=== PATIENT | male | born 1970 | race Caucasian/White ===

== ENCOUNTER 2018-11-29 02:08 | Outpatient (CLI) | payer BC, SELFPAY ==
[2018-11-29 11:35] LABS: ALT 23 U/L (12-78); AST 18 U/L (15-37); Albumin 3.8 g/dL (3.4-5.0); Alkaline Phosphatase 131 U/L (46-116); Anion Gap 5.2 mmol/L (3-11); BUN 19 mg/dL (7-18); Bilirubin, Total 0.8 mg/dL (0.2-1.0); CO2 30.8 mmol/L (21.0-32.0); CREATININE 0.97 mg/dL (0.70-1.30); Calcium 9.2 mg/dL (8.5-10.1); Chloride 101 mmol/L (98-107); Cholesterol 125 mg/dL (50-200); Glucose 95 mg/dL (70-100); HDL Cholesterol 45 mg/dL (40-60); LDL CHOLESTEROL 72 mg/dL (<100); Potassium 4.1 mmol/L (3.5-5.1); Sodium 137 mmol/L (136-145); Total Protein 6.7 g/dL (6.4-8.2); Triglyceride 70 mg/dL (30-150)
[2018-11-29 18:10] LABS: FREE T4 0.92 ng/dL (0.76-1.46)
[2018-12-01 17:25] LABS: Testosterone, Free 7.61 ng/dL (4.06-15.6); Testosterone, Total 282 ng/dL (240-950)
== END 2018-11-29 02:28 ==
PROVIDERS: PCP Nurse Practitioner Family; Visit Provider Nurse Practitioner Family
DX: Z00.00 Encounter for general adult medical examination without abnormal findings (principal); E78.5 Hyperlipidemia, unspecified; Z12.5 Encounter for screening for malignant neoplasm of prostate; R53.83 Other fatigue
CPT/HCPCS: 36415; 80053; 80061; 83721; 84402; 84403; 84154; 84439; 84443

== ENCOUNTER 2018-12-24 08:09 | Day surgery (SDC) | payer BC, SELFPAY ==
--- NOTE | 2018-12-24 07:06 | W.COLOREPORT ---
Date of service: 12/24/18 Time of Service: 09:11 Colonoscopy Report Date of procedure: 12/24/18 Pre-op diagnosis general: Colon Cancer Screening Post-op diagnosis procedure note: other (Rectal polyp) Procedure: Colonoscopy with polypectomy with cold forceps Surgeon: Racheal Mckeon Anesthesia proc note operative: other (General/ ASA 2/ Lance Cordova, UZMA) Estimated blood loss (mL): 3 Pathology: other (rectal polyp) Complications: None Disposition: no change Indications: Mr. Duarte is a pleasant 48 year old male who was seen in the office for a screening colonoscopy. Risks, benefits and complications have been reviewed. Complications include but are not limited to bleeding, pain, perforation, missed small lesion/polyp, sore throat, aspiration and adverse reaction to the medications. Questions were entertained and answered to their satisfaction and they wished to proceed. No guarantees were given or implied. Prep: Miralax/Dulcolax Procedure Start Time: 09:11 Procedure End Time: 09:37 Retraction Time: 15 minutes Findings: One small <1 cm sessile polyp Procedure Description: After informed consent was obtained the patient was taken to the procedure room and placed in a left decubitous position. Monitors were applied and a time out was done. The patients name, date of , procedure, allergies to medications and metal in their body was reviewed. The patient was then sedated. Once sedated and comfortable a rectal exam was done. External exam was normal. Internal exam revealed a normal sphincter tone and no palpable masses. The prostate felt smooth. The scope was then introduced and retro-flexed. No internal hemorrhoids, masses or polyps were identified. The scope was then advanced to the cecum without difficulty. The TI and appendiceal orifice were identified. The prep was adequate. The scope was then slowly retracted over 15 minutes back into the rectum. One Polyp was removed in the rectum. The scope was removed and the patient was woken up and taken back to Same day surgery in stable condition. The patient tolerated the procedure well and there were no immediate complications. Follow up: The patient should follow up in 3-5 years unless they develop changes in bowel habits or other new gastrointestinal complaints.
--- NOTE | 2018-12-24 07:07 | W.PM.DSUDISC ---
Discharge Plan Disposition Patient Disposition: HOME Condition: Good Discharge Details Reason For Visit: Colon Cancer Screening Attending Provider: Racheal Mckeon Primary Care Provider: Annie Senior Home Meds and New Rx's Prescriptions: Discontinued bisacodyl [Dulcolax (bisacodyl)] 5 mg tablet,delayed release (DR/EC) 5 mg PO ONCE Qty: 4 RF: 0 polyethylene glycol 3350 17 gram/dose powder 238 g PO ONCE Qty: 238 RF: 0 Discharge Instructions Instructions: Colonoscopy (DC), Colorectal Polyps (DC) Additional Instructions: Findings: 1 small polyp Follow up: 3-5 years Please call if you develop: fevers >101.5 Nausea or Vomiting Abdominal pain that is not transient DAY SURGERY UNIT POST COLONOSCOPY INSTRUCTIONS 1. Because there will be medication in your system for the next 24 hours, you may feel a little sleepy. Your coordination will be affected. Therefore: a. Do not drive or operate dangerous equipment for 24 hours. b. Do not drink alcohol beverages for 24 hours (not even beer). c. Plan to go home and rest for the day. 2. Generally there are no restrictions on your activity after a day or so has gone by, but you may feel a bit fatigued for a few days. 3 After you arrive home you may have a light meal and return to a normal diet as you can tolerate it without feeling sick to your stomach. 4. After surgery, you may feel pain or discomfort. This should be only transient, but if it persists please contact your doctor. 5. If there are any questions regarding the findings of your procedure, please feel free to contact your doctor. 6. If you are unable to contact your doctor with a problem, contact the hospital at [phone]. 7. Continue all your regular medications unless directed otherwise. I understand the above instructions and have no questions. Signature of Patient or Responsible Adult Escort Date/Time Name of Responsible Adult Escort Signature of Nurse Date/Time Stand Alone Forms: Erum Jimenez (DSU) Activity:: Activity as Tolerated Diet:: As Tolerated Discharge Orders Discharge Orders: Discharge Order (Routine); Ordered 12/24/18 Ordered By: Racheal Mckeon DS: Diagnosis Discharge Diagnosis (1) S/P colonoscopy: Status: Acute (2) Colorectal polyp detected on colonoscopy: Status: Acute
--- NOTE | 2018-12-24 07:13 | W.PM.HP.N ---
Date of service: 12/24/18 Assessment and Plan (1) Encounter for screening colonoscopy: Current visit: No Status: Acute P\\ Colonoscopy under sedation Risks, benefits and complications have been reviewed. Complications include but are not limited to bleeding, pain, perforation, missed small lesion/polyp, sore throat, aspiration and adverse reaction to the medications. Questions were entertained and answered to their satisfaction and they wished to proceed. No guarantees were given or implied. History of Present Illness Narrative: 48 y/o male with history of hyperlipidema presents for his first colonoscopy screening pre-op. He denies a family history of colon cancer. He denies any changes in bowel habits including bloody or black tarry stools, abdominal pain, diarrhea or constipation. He denies constitutional symptoms. Denies use of marijuana or any other recreational or illegal drugs. He denies chest pain, palpitations, dyspnea or dyspnea with exertion. He exercises daily and works at the [employer]. He denies prior history or family history of adverse reactions or complications with anesthesia. There were no changes in his health since he was seen in the office. Review of Systems Constitutional Denies fever(s) Cardiovascular Denies chest pain, Denies palpitations and Denies dyspnea Respiratory Denies dyspnea Endocrine Denies palpitations [facility] Medical History Hyperlipidemia (Chronic) Inguinal hernia of left side without obstruction or gangrene (Resolved) Surgical History S/P colonoscopy (Acute ~12/24/18) S/P hernia repair (Inactive) Family History Mother No problems noted. Father Prostate cancer Sister Multiple sclerosis Brother No problems noted. Brother Suicide Brother No problems noted. Daughter No problems noted. Maternal Grandfather Lung cancer Maternal Grandmother No problems noted. Paternal Grandfather Diabetes Paternal Grandmother No problems noted. Social History Smoking/Tobacco Use Status: Former Tobacco Use Quit Date: 09/03/08 Alcohol Intake: current Alcohol Intake frequency: holidays/special occasions only Drug use: Never Substance use type: does not use Caregiver/Support person: No Household members: spouse and children Housing: house Pets and animals: Yes Do you think of yourself as: straight/heterosexual Duration: 60-90 minutes/day Frequency: daily Briseyda/Zoroastrian: Baptism Special briseyda needs: No Do you feel safe at home: Yes Do you feel safe in your relationship?: Yes Meds Home Medications Medication Instructions Recorded Confirmed Type bisacodyl 5 mg tablet,delayed 5 mg PO ONCE #4 tab 11/08/18 11/29/18 Rx release polyethylene glycol 3350 17 238 g PO ONCE #238 gm 11/08/18 11/29/18 Rx gram/dose oral powder Allergies Allergy/AdvReac Type Severity Reaction Status Date / Time No Known Allergies Allergy Verified 11/29/18 08:50 Exam HENVT Head: normocephalic and atraumatic Resp Effort & Inspection: normal respiratory effort Auscultation: clear to auscultation bilaterally Cardio Rate: regular rate Rhythm: regular rhythm Heart Sounds: no gallops, no murmurs and no rubs
[2018-12-24 08:19] VITALS: BP 120/84; PULSE 80; RESP 16; TEMP 35.6; O2SAT 96
[2018-12-24] MEDS: Lactated Ringers 1,000 ML 80 ML IV (08:35)
--- NOTE | 2018-12-24 09:36 | BOWEL_PTH ---
PATIENT: Alberto Duarte LOC: [facility] U#:[id number] AGE/SX: 48/M ROOM: RE12/24/[address]: Racheal Mckeon MD : [id number] BED: DIS: 12/24/2018 SPEC #: [id number] RECD: 12/24/18 12:16 STATUS: EDER RE #: [id number] MICHELLE: 12/24/18 09:[address]: Racheal Mckeon DEPT: Surgical Specimen RECD BY: Katty Balderas ENTERED: 12/24/18 12:17 SP TYPE: Bowel OTHR DR: CHRISTOPHER Silva Tissues: 1 - BIOPSY BOWEL Procedures: GROSS AND MICRO LEVEL 4 Comments: [id number]
[2018-12-24 10:20] VITALS: BP 122/86; PULSE 63; RESP 16; TEMP 35.7; O2SAT 96
== END 2018-12-24 10:33 | disposition home or self-care (01) ==
PROVIDERS: PCP Nurse Practitioner Family; Visit Provider Surgery
PROC: 0DJD8ZZ Inspection of Lower Intestinal Tract, Via Natural or Artificial Opening Endoscopic (ICD-10-PCS; CPT 45378; principal; 2018-12-24 08:30)
DX: Z12.11 Encounter for screening for malignant neoplasm of colon (principal); K62.1 Rectal polyp
CPT/HCPCS: 45380; 88305; NC

== ENCOUNTER → 2023-06-06 02:59 | Outpatient (CLI) | payer BC, SELFPAY ==
--- NOTE | 2023-06-06 06:45 | DI.RAD_ITS ---
Exam(s) XR KNEE LT 3V AP,LAT,YULI EXAM: XR KNEE LT 3V AP,LAT,YULI CLINICAL HISTORY: left knee pain, bony prominence medial aspect,m25.562. TECHNIQUE: 2D digital imaging was performed. COMPARISON: No exams were available for comparison FINDINGS: 3 views No evidence of fracture nor prominent joint effusion. There is significant narrowing of the medial c ompartment. Lateral compartment exhibits normal height. Minimal degenerative changes in the patello femoral compartment. Bone density normal. No osseous lesions. 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 DATA REPOSITORY: RADIATION DOSE DELIVERED:
== END ==
PROVIDERS: PCP Nurse Practitioner Family; Visit Provider Nurse Practitioner Family
DX: M17.12 Unilateral primary osteoarthritis, left knee (principal)
CPT/HCPCS: 73562

== ENCOUNTER 2023-08-16 09:03 | Outpatient (CLI) | payer BC, SELFPAY ==
[2023-08-16 12:51] LABS: HCT 44.4 % (40.0-50.0); HGB 14.7 g/dL (13.5-17.5); MCH 29.3 pg (27.0-33.0); MCHC 33.1 % (32.0-36.0); MCV 89 fL (80-95); MPV 10.6 fL (8.0-11.0); Platelet Count 241 10^3/uL (130-400); RBC 5.01 10^6/uL (4.36-5.78); RDW 12.8 % (11.8-14.1); RDW-SD 41.4 fL; WBC 3.25 10^3/uL (4.4-10.8)
[2023-08-16 13:01] LABS: ALT 29 U/L (16-63); AST 18 U/L (15-37); Albumin 3.7 g/dL (3.4-5.0); Alkaline Phosphatase 306 U/L (46-116); Anion Gap 7.8 mmol/L (3-11); BUN 23 mg/dL (7-18); Bilirubin, Total 0.6 mg/dL (0.2-1.0); CO2 28.2 mmol/L (21.0-32.0); CREATININE 0.7 mg/dL (0.70-1.30); Calcium 9.4 mg/dL (8.5-10.1); Calculated LDL 42 mg/dL (<100); Chloride 103 mmol/L (98-107); Cholesterol 116 mg/dL (<200); Estimated GFR 108.82 (mL/min/1.73m2); Glucose 118 mg/dL (74-106); HDL Cholesterol 61 mg/dL (40-60); Potassium 4.2 mmol/L (3.5-5.1); Sodium 139 mmol/L (136-145); Total Protein 6.9 g/dL (6.4-8.2); Triglyceride 65 mg/dL (<150)
[2023-08-16 13:27] LABS: Hemoglobin A1C 5.6 % (<5.7)
[2023-08-16 21:31] LABS: Hepatitis C Ab w Rflx HCV PCR Negative (Negative)
== END 2023-08-16 09:04 | disposition home or self-care (01) ==
LOC: LOS 09:03
PROVIDERS: PCP Nurse Practitioner Family; Visit Provider Nurse Practitioner Family
DX: Z00.00 Encounter for general adult medical examination without abnormal findings (principal); Z12.5 Encounter for screening for malignant neoplasm of prostate
CPT/HCPCS: 36415; 80053; 80061; 84153; 85027; 86803; 83036

== ENCOUNTER 2023-08-31 03:37 | Outpatient (CLI) | payer BC, SELFPAY ==
[2023-08-31 12:21] LABS: Abs Immature Grans 0.01 10^3/uL (0.0-0.06); Absolute Basophil Count 0.02 10^3/uL (0.0-0.2); Absolute Eosinophil Count 0.09 10^3/uL (0.0-0.7); Absolute Lymphocyte Count 1.19 10^3/uL (1.2-3.4); Absolute Monocyte Count 0.63 10^3/uL (0.1-0.8); Basophils % 0.5; Eosinophils % 2.5; HCT 41.6 % (40.0-50.0); HGB 13.8 g/dL (13.5-17.5); Immature Grans % 0.3; Lymphocytes % 32.7; MCH 29.4 pg (27.0-33.0); MCHC 33.2 % (32.0-36.0); MCV 89 fL (80-95); MPV 10.5 fL (8.0-11.0); Monocytes % 17.3; Neutrophils % 46.7; Platelet Count 215 10^3/uL (130-400); RDW 12.3 % (11.8-14.1); RDW-SD 39.5 fL; WBC 3.64 10^3/uL (4.4-10.8)
[2023-08-31 12:34] LABS: ALT 30 U/L (16-63); AST 17 U/L (15-37); Albumin 3.4 g/dL (3.4-5.0); Alkaline Phosphatase 276 U/L (46-116); Anion Gap 8.3 mmol/L (3-11); BUN 16 mg/dL (7-18); Bilirubin, Total 0.5 mg/dL (0.2-1.0); CO2 28.7 mmol/L (21.0-32.0); CREATININE 0.9 mg/dL (0.70-1.30); Calcium 9.2 mg/dL (8.5-10.1); Chloride 105 mmol/L (98-107); Estimated GFR 100.86 (mL/min/1.73m2); GGT 13 U/L (15-85); Glucose 104 mg/dL (74-106); Potassium 3.9 mmol/L (3.5-5.1); Sodium 142 mmol/L (136-145); Total Protein 6.5 g/dL (6.4-8.2)
[2023-08-31 12:35] LABS: TSH (W/Ref FT4) < 0.01 uIU/mL (0.36-3.74)
[2023-08-31 12:47] LABS: Vitamin D 25 Total 71.1 ng/mL (30-100)
[2023-08-31 20:33] LABS: Parathyroid Hormone,Intact 25 pg/mL (19-88)
== END 2023-08-31 03:38 | disposition home or self-care (01) ==
PROVIDERS: PCP Nurse Practitioner Family; Visit Provider Nurse Practitioner Family
DX: R74.8 Abnormal levels of other serum enzymes (principal); D72.819 Decreased white blood cell count, unspecified
CPT/HCPCS: 36415; 80053; 82306; 82977; 83970; 84439; 84443; 85025

== ENCOUNTER 2023-09-10 05:21 | Outpatient (CLI) | payer BC, SELFPAY ==
[2023-09-10 13:18] LABS: TSH (W/Ref FT4) < 0.01 uIU/mL (0.36-3.74)
[2023-09-10 13:40] LABS: FREE T4 2.75 ng/dL (0.76-1.46)
[2023-09-10 23:59] LABS: T3,Free >22.8 pg/mL (2.8-5.3)
[2023-09-13 12:04] LABS: Thyrotropin Receptor Ab 3.27 IU/L
== END 2023-09-10 05:22 | disposition home or self-care (01) ==
LOC: LOS 05:21
PROVIDERS: PCP Nurse Practitioner Family; Visit Provider Nurse Practitioner Family
DX: E05.90 Thyrotoxicosis, unspecified without thyrotoxic crisis or storm (principal)
CPT/HCPCS: 36415; 84235; 84439; 84443; 84481

== ENCOUNTER → 2023-10-11 01:47 | Outpatient (CLI) | payer BC, SELFPAY ==
--- NOTE | 2023-10-11 05:45 | DI.NM_ITS ---
Exam(s) NM I123 THYROID UP SC DAY 1 NM I123 THYROID UP SC DAY 2 CLINICAL HISTORY: HYPERTHYROIDISM,e05.90. COMPARISON: NM NM I123 THYROID UP SC DAY 1 from 10/10/2023 TECHNIQUE: Capsule Dose: 0.35 millicuries I-123 Rene Images: At 6 hours and 24 hours. FINDINGS: The 4 hour radioiodine uptake was 49 percent. The total radioiodine uptake was 76 % at 24 hours. Th is is above the normal range. No cold or hot nodules are demonstrated. IMPRESSION: Radioiodine uptake is above the normal range is could indicate Graves disease. SNM Guidelines: Normal uptake values 10-35%. Graves Uptake >50-80%. DATA REPOSITORY:
== END ==
PROVIDERS: PCP Nurse Practitioner Family; Visit Provider Nurse Practitioner Family
DX: E05.90 Thyrotoxicosis, unspecified without thyrotoxic crisis or storm (principal)
CPT/HCPCS: 78014; A9512

== ENCOUNTER 2023-11-20 09:52 | Outpatient (CLI) | payer BC, SELFPAY ==
[2023-11-20 09:47] LABS: Abs Immature Grans 0.01 10^3/uL (0.0-0.06); Absolute Basophil Count 0.01 10^3/uL (0.0-0.2); Absolute Eosinophil Count 0.02 10^3/uL (0.0-0.7); Absolute Lymphocyte Count 0.68 10^3/uL (1.2-3.4); Absolute Monocyte Count 0.83 10^3/uL (0.1-0.8); Absolute Neutrophil Count 2.88 10^3/uL (1.2-6.7); Basophils % 0.2; Eosinophils % 0.5; HCT 42.6 % (40.0-50.0); HGB 14.2 g/dL (13.5-17.5); Immature Grans % 0.2; Lymphocytes % 15.3; MCH 29.1 pg (27.0-33.0); MCHC 33.3 % (32.0-36.0); MCV 87 fL (80-95); Monocytes % 18.7; Neutrophils % 65.1; Platelet Count 171 10^3/uL (130-400); RBC 4.88 10^6/uL (4.36-5.78); RDW 12.8 % (11.8-14.1); RDW-SD 41.1 fL; WBC 4.43 10^3/uL (4.4-10.8)
[2023-11-20 10:11] LABS: FREE T4 2.74 ng/dL (0.76-1.46)
[2023-11-20 10:13] LABS: ALT 44 U/L (16-63); AST 25 U/L (15-37); Albumin 3.4 g/dL (3.4-5.0); Alkaline Phosphatase 326 U/L (46-116); Anion Gap 10.7 mmol/L (3-11); BUN 17 mg/dL (7-18); Bilirubin, Total 0.5 mg/dL (0.2-1.0); CO2 28.3 mmol/L (21.0-32.0); CREATININE 0.9 mg/dL (0.70-1.30); Calcium 8.8 mg/dL (8.5-10.1); Chloride 103 mmol/L (98-107); Estimated GFR 100.86 (mL/min/1.73m2); Glucose 131 mg/dL (74-106); Potassium 4.2 mmol/L (3.5-5.1); Sodium 142 mmol/L (136-145); Total Protein 6.6 g/dL (6.4-8.2)
[2023-11-20 17:40] LABS: T3, Total 692 ng/dL (97-169)
[2023-11-20 21:31] LABS: Lab Add On Test DONE
[2023-11-20 21:53] LABS: TSH < 0.01 uIU/Ml (0.36-3.74)
== END 2023-11-20 09:53 | disposition home or self-care (01) ==
LOC: LBO 09:52
PROVIDERS: PCP Nurse Practitioner Family; Visit Provider Student in an Organized Health Care Education/Training Program
DX: E05.90 Thyrotoxicosis, unspecified without thyrotoxic crisis or storm (principal)
CPT/HCPCS: 36415; 80053; 84439; 84443; 84480; 85025

== ENCOUNTER 2024-02-08 05:21 | Outpatient (CLI) | payer BC, SELFPAY ==
[2024-02-08 12:58] LABS: FREE T4 0.73 ng/dL (0.76-1.46)
[2024-02-08 18:22] LABS: T3, Total 222 ng/dL (97-169)
== END 2024-02-08 05:22 | disposition home or self-care (01) ==
LOC: LOS 05:21
PROVIDERS: PCP Nurse Practitioner Family; Visit Provider Student in an Organized Health Care Education/Training Program
DX: E05.00 Thyrotoxicosis with diffuse goiter without thyrotoxic crisis or storm (principal)
CPT/HCPCS: 36415; 84439; 84480

== ENCOUNTER 2024-03-28 01:52 | Outpatient (CLI) | payer BC, SELFPAY ==
[2024-03-28 16:51] LABS: HCT 41.3 % (40.0-50.0); HGB 14.3 g/dL (13.5-17.5); MCH 32.5 pg (27.0-33.0); MCHC 34.6 % (32.0-36.0); MCV 94 fL (80-95); MPV 10.5 fL (8.0-11.0); Platelet Count 208 10^3/uL (130-400); RDW 12.4 % (11.8-14.1); WBC 4.42 10^3/uL (4.4-10.8)
[2024-03-28 17:37] LABS: ALT 28 U/L (16-63); AST 21 U/L (15-37); Albumin 3.9 g/dL (3.4-5.0); Alkaline Phosphatase 366 U/L (46-116); Anion Gap 7.4 mmol/L (3-11); BUN 23 mg/dL (7-18); Bilirubin, Total 0.47 mg/dL (0.2-1.0); CO2 28.6 mmol/L (21.0-32.0); CREATININE 0.9 mg/dL (0.70-1.30); Calcium 8.9 mg/dL (8.5-10.1); Calculated LDL 72 mg/dL (<100); Chloride 103 mmol/L (98-107); Cholesterol 163 mg/dL (<200); Estimated GFR 100.86 (mL/min/1.73m2); Glucose 100 mg/dL (74-106); HDL Cholesterol 66 mg/dL (40-60); Potassium 3.8 mmol/L (3.5-5.1); Sodium 139 mmol/L (136-145); Total Protein 6.9 g/dL (6.4-8.2); Triglyceride 127 mg/dL (<150); Vitamin D 25 Total 44.3 ng/mL (30-100)
[2024-03-28 17:57] LABS: FREE T4 0.85 ng/dL (0.76-1.46)
[2024-03-29 22:21] LABS: CRP, High Sensitivity <0.34 mg/L (See Note)
[2024-03-29 22:37] LABS: T3,Free 3.5 pg/mL (2.8-5.3)
[2024-03-29 22:51] LABS: T3, Total 195 ng/dL (97-169)
[2024-03-31 09:33] LABS: IgA 255 mg/dL (85-499); IgG 837 mg/dL (610-1616); IgM 78 mg/dL (35-242)
[2024-03-31 09:55] LABS: Thyroperoxidase Antibody >1300 U/mL (<=60)
[2024-04-01 11:13] LABS: Selenium, Serum 150 mcg/L (110-165)
[2024-04-01 12:26] LABS: Lipoprotein (a) <7 nmol/L (<75)
[2024-04-01 16:18] LABS: Alkaline Phosphatase 347 U/L (40 - 129); Bone % 75.8 % (19.1-67.7); Intestine 52.7 IU/L (0.0-11.0); Intestine % 15.2 % (0.0-20.6)
[2024-04-01 19:34] LABS: Iodine, S 50 ng/mL (40-92)
[2024-04-02 22:06] LABS: Thyroid Stimulating Immunoglob <1.0 TSI index (<=1.3)
== END 2024-03-28 01:53 | disposition home or self-care (01) ==
LOC: LBO 01:53
PROVIDERS: Student in an Organized Health Care Education/Training Program; PCP Nurse Practitioner Family; Visit Provider Naturopath
DX: E05.00 Thyrotoxicosis with diffuse goiter without thyrotoxic crisis or storm (principal); E05.90 Thyrotoxicosis, unspecified without thyrotoxic crisis or storm; E55.9 Vitamin D deficiency, unspecified; Z13.220 Encounter for screening for lipoid disorders; R74.8 Abnormal levels of other serum enzymes; D72.819 Decreased white blood cell count, unspecified
CPT/HCPCS: 36415; 80053; 80061; 82306; 82784; 83090; 83695; 84075; 84080; 85027; 86141; 82190; 84255; 84439; 84443; 84445; 84480; 84481; 86376

== ENCOUNTER 2024-07-15 13:56 | Outpatient (CLI) | payer BC, SELFPAY ==
[2024-07-15 13:53] LABS: Abs Immature Grans 0.01 10^3/uL (0.0-0.06); Absolute Basophil Count 0.04 10^3/uL (0.0-0.2); Absolute Eosinophil Count 0.12 10^3/uL (0.0-0.7); Absolute Lymphocyte Count 1.14 10^3/uL (1.2-3.4); Absolute Monocyte Count 0.42 10^3/uL (0.1-0.8); Absolute Neutrophil Count 2.59 10^3/uL (1.2-6.7); Basophils % 0.9 %; Eosinophils % 2.8 %; HCT 41.6 % (40.0-50.0); HGB 14.7 g/dL (13.5-17.5); Immature Grans % 0.2 %; Lymphocytes % 26.4 %; MCHC 35.3 % (32.0-36.0); MCV 93 fL (80-95); MPV 9.8 fL (8.0-11.0); Monocytes % 9.7 %; Platelet Count 210 10^3/uL (130-400); RBC 4.46 10^6/uL (4.36-5.78); RDW 11.9 % (11.8-14.1); RDW-SD 40.9 fL; WBC 4.32 10^3/uL (4.4-10.8)
[2024-07-15 15:22] LABS: ALT 26 U/L (16-63); AST 25 U/L (15-37); Albumin 4.1 g/dL (3.4-5.0); Alkaline Phosphatase 259 U/L (46-116); Anion Gap 8.5 mmol/L (3-11); BUN 20 mg/dL (7-18); Bilirubin, Total 0.38 mg/dL (0.2-1.0); CO2 26.5 mmol/L (21.0-32.0); CREATININE 0.9 mg/dL (0.70-1.30); Calcium 8.8 mg/dL (8.5-10.1); Chloride 106 mmol/L (98-107); Estimated GFR 100.24 (mL/min/1.73m2); Ferritin 428 ng/mL (26-388); Folate 17.3 ng/mL (8.6-20.0); Glucose 92 mg/dL (74-106); Magnesium 2.2 mg/dL (1.8-2.4); Potassium 3.9 mmol/L (3.5-5.1); Sodium 141 mmol/L (136-145); Total Protein 7.2 g/dL (6.4-8.2); Vitamin B12 373 pg/mL (193-986)
[2024-07-15 15:32] LABS: Iron 108 ug/dL (65-175); Total Iron Binding Capacity 240 ug/dL (250-450); Transferrin Sat 45 % (20-55)
[2024-07-15 17:26] LABS: FREE T4 0.82 ng/dL (0.76-1.46); TSH 0.92 uIU/mL (0.36-3.74)
== END 2024-07-15 13:57 | disposition home or self-care (01) ==
LOC: LBO 13:59
PROVIDERS: Student in an Organized Health Care Education/Training Program; PCP Nurse Practitioner Family; Visit Provider Naturopath
DX: E05.00 Thyrotoxicosis with diffuse goiter without thyrotoxic crisis or storm (principal); R25.2 Cramp and spasm
CPT/HCPCS: 36415; 80053; 82607; 82728; 82746; 83540; 83550; 83735; 84439; 84443; 85025

== ENCOUNTER 2024-10-17 13:42 | Outpatient (CLI) | payer BC, SELFPAY ==
[2024-10-17 13:01] LABS: FREE T4 0.99 ng/dL (0.76-1.46); TSH 0.55 uIU/mL (0.36-3.74)
[2024-10-17 13:20] LABS: ALT 30 U/L (16-63); AST 26 U/L (15-37); Albumin 4.5 g/dL (3.4-5.0); Alkaline Phosphatase 213 U/L (46-116); Anion Gap 8.5 mmol/L (3-11); BUN 20 mg/dL (7-18); Bilirubin, Total 0.79 mg/dL (0.2-1.0); CO2 29.5 mmol/L (21.0-32.0); CREATININE 1.1 mg/dL (0.70-1.30); Calcium 9.1 mg/dL (8.5-10.1); Chloride 104 mmol/L (98-107); Estimated GFR 78.79 (mL/min/1.73m2); Glucose 97 mg/dL (74-106); Iron 134 ug/dL (65-175); Sodium 142 mmol/L (136-145); Total Iron Binding Capacity 240 ug/dL (250-450); Total Protein 7.8 g/dL (6.4-8.2); Transferrin Sat 56 % (20-55)
[2024-10-17 13:28] LABS: Ferritin 495 ng/mL (26-388)
[2024-10-17 13:35] LABS: Vitamin D 25 Total 35.3 ng/mL (30-100)
[2024-10-17 22:03] LABS: T3,Free 4.8 pg/mL (2.8-5.3)
[2024-10-17 22:55] LABS: PSA, Screening 0.8 ng/mL (<=3.5)
[2024-10-18 00:06] LABS: HIV-1/2 Ag & Ab Screen Negative (Negative)
[2024-10-18 17:55] LABS: Mercury, B <1 ng/mL (<10)
[2024-10-20 10:17] LABS: HBs Antibody, Quant <3.1 mIU/mL (See Note); Hep B Surface Ab Negative (See Note); Hepatitis B Core Antibody Negative (Negative); Hepatitis B Surface Antigen Negative (Negative)
[2024-10-22 22:30] LABS: Thyroid Stimulating Immunoglob <1.0 TSI index (<=1.3)
[2024-10-23 03:49] LABS: Free Retinol (Vitamin A) 49.6 mcg/dL (32.5-78.0)
== END 2024-10-17 13:43 | disposition home or self-care (01) ==
LOC: LBO 13:43
PROVIDERS: Student in an Organized Health Care Education/Training Program; PCP Nurse Practitioner Family; Visit Provider Naturopath
DX: Z11.4 Encounter for screening for human immunodeficiency virus [HIV] (principal); Z00.00 Encounter for general adult medical examination without abnormal findings; Z12.5 Encounter for screening for malignant neoplasm of prostate; Z11.59 Encounter for screening for other viral diseases; E05.90 Thyrotoxicosis, unspecified without thyrotoxic crisis or storm; Z77.018 Contact with and (suspected) exposure to other hazardous metals; E55.9 Vitamin D deficiency, unspecified; E05.00 Thyrotoxicosis with diffuse goiter without thyrotoxic crisis or storm
CPT/HCPCS: 36415; 80053; 82306; 83825; 84153; 86704; 86706; 87340; 87389; 82728; 83540; 83550; 84439; 84443; 84445; 84481; 84590

== ENCOUNTER 2024-11-27 10:20 | Outpatient (CLI) | payer BC, SELFPAY ==
[2024-12-03 07:39] LABS: Specimen WB Whole Blood
== END 2024-11-27 10:21 | disposition home or self-care (01) ==
LOC: LBO 10:21
PROVIDERS: PCP Nurse Practitioner Family; Visit Provider Naturopath
DX: R77.8 Other specified abnormalities of plasma proteins (principal)
CPT/HCPCS: 36415; 81256

== ENCOUNTER 2024-12-19 13:11 | Outpatient (CLI) | payer BC, SELFPAY ==
[2024-12-19 13:51] LABS: Ferritin 357 ng/mL (26-388)
[2024-12-19 14:10] LABS: Iron 112 ug/dL (65-175); Total Iron Binding Capacity 237 ug/dL (250-450); Transferrin Sat 47 % (20-55)
== END 2024-12-19 13:12 | disposition home or self-care (01) ==
LOC: LBO 13:11
PROVIDERS: PCP Nurse Practitioner Family; Visit Provider Naturopath
DX: R77.8 Other specified abnormalities of plasma proteins (principal)
CPT/HCPCS: 36415; 82728; 83540; 83550

== ENCOUNTER 2025-04-23 11:09 | Outpatient (CLI) | payer BC, SELFPAY ==
[2025-04-23 10:48] LABS: TSH 0.32 uIU/mL (0.36-3.74)
== END 2025-04-23 11:10 | disposition home or self-care (01) ==
LOC: LBO 11:09
PROVIDERS: PCP Nurse Practitioner Family; Visit Provider Student in an Organized Health Care Education/Training Program
DX: E05.00 Thyrotoxicosis with diffuse goiter without thyrotoxic crisis or storm (principal)
CPT/HCPCS: 36415; 84439; 84443

== ENCOUNTER 2025-05-26 04:57 | Outpatient (CLI) | payer BC, SELFPAY ==
[2025-05-26 14:23] LABS: Abs Immature Grans 0.00 10^3/uL (0.0-0.06); HCT 36.5 % (40.0-50.0); HGB 12.7 g/dL (13.5-17.5); Immature Grans % 0.0 %; MCH 32.5 pg (27.0-33.0); MCHC 34.8 % (32.0-36.0); MCV 93 fL (80-95); MPV 9.9 fL (8.0-11.0); Platelet Count 218 10^3/uL (130-400); RBC 3.91 10^6/uL (4.36-5.78); RDW 12.3 % (11.8-14.1); RDW-SD 42.0 fL; WBC 4.36 10^3/uL (4.4-10.8)
[2025-05-26 16:45] LABS: Iron 86 ug/dL (65-175); Total Iron Binding Capacity 240 ug/dL (250-450); Transferrin Sat 36 % (20-55)
[2025-05-26 17:07] LABS: ALT 27 U/L (16-63); AST 22 U/L (15-37); Albumin 3.7 g/dL (3.4-5.0); Alkaline Phosphatase 158 U/L (46-116); Anion Gap 10.0 mmol/L (3-11); BUN 18 mg/dL (7-18); Bilirubin, Total 0.3 mg/dL (0.2-1.0); CO2 25.0 mmol/L (21.0-32.0); Calcium 8.6 mg/dL (8.5-10.1); Chloride 106 mmol/L (98-107); Estimated GFR 99.62 (mL/min/1.73m2); Ferritin 242 ng/mL (26-388); Glucose 138 mg/dL (74-106); Potassium 4.0 mmol/L (3.5-5.1); Sodium 141 mmol/L (136-145); TSH 0.42 uIU/mL (0.36-3.74); Total Protein 6.5 g/dL (6.4-8.2); Vitamin D 25 Total 49 ng/mL (30-100)
[2025-05-26 22:18] LABS: T3,Free 4.1 pg/mL (2.8-5.3)
== END 2025-05-26 04:58 ==
LOC: LBO 05-27 04:57
PROVIDERS: PCP Nurse Practitioner Family; Visit Provider Naturopath
DX: R79.89 Other specified abnormal findings of blood chemistry (principal); E55.9 Vitamin D deficiency, unspecified; Z86.39 Personal history of other endocrine, nutritional and metabolic disease
CPT/HCPCS: 36415; 80053; 82306; 82728; 83540; 83550; 84439; 84443; 84445; 84481; 85025; 86376